=== PATIENT | female | born 1970 | race Caucasian/White ===

== ENCOUNTER 2018-12-15 19:20 | Emergency (ER) | payer BC ==
[~2018-12-15] VITALS: Ht 157.5 cm; Wt 108.0 kg
[2018-12-15 19:30] VITALS: Ht 157.5 cm; Wt 108.0 kg
[2018-12-15] MEDS ORDERED: IOHEXOL 300MG/ML 150 ML BTL ONE (22:51)
[2018-12-15] MEDS ORDERED: SOD CHLORIDE 0.9% 100 ML ONE (22:51)
[2018-12-15] MEDS ORDERED: LORAZEPAM 2 MG INJ IV ONE (23:00)
--- NOTE | 2018-12-15 23:04 | ERD ---
ER Documentation Chief Complaint Chief Complaint HEADACHE RECHECK; WAS SEEN IN HPI Very pleasant 48-year-old female who presents to the emergency room with elevated blood pressure. The patient states that she was seen in urgent care and told to come to the emergency room. For approximately 1 week the patient has been waking up with bilateral paraspinal neck and upper trapezius bilateral shoulder tenderness and discomfort. This is gotten better throughout the day but also worse after a long strenuous day at work. She notes significant social stressors. Warm compresses have certainly helped with only mild alleviation wi th nonsteroidal anti-inflammatory. Patient was noted to have elevated blood pressure and normally has regular blood pressure. Earlier in the day the patient states that for one sentence she had slurred speech and garbled speech. This lasted only one sentence was complete resolution. She has not had any recurrent episodes and no motor weakness. She denies any headache but has noted her blood pressure is higher than normal. ROS All systems reviewed and are negative except as per history of present illness. Medications Home Meds Active Scripts Aspirin* (Aspirin* EC) 81 Mg Tablet.dr, 81 MG PO DAILY for 30 Days, TAB Prov:KAILEE MIGUEL MD 12/16/18 Diazepam* (Valium*) 5 Mg Tablet, 5 MG PO Q8 PRN for MUSCLE SPASMS, #10 TAB Prov:KAILEE MIGUEL MD 12/16/18 Allergies Allergies: Coded Allergies: No Known Allergy (Unverified , 12/15/18) PMhx/Soc Medical and Surgical Hx: pt denies Surgical Hx Hx Psychiatric Problems: Yes (Anxiety, Depression) Hx Miscellaneous Medical Probl: Yes (Shingles first one 7 years ago, second one 3 years) Hx Alcohol Use: Yes (Last time Jun 2018) Hx Substance Use: Yes (Medical Marijuana last time ) Hx Tobacco Use: Yes (Last time 1 year ago) Smoking Status: Former smoker FmHx Family History: diabetes Physical Exam Vitals Vital Signs Date Temp Pulse Resp B/P (MAP) Pulse Ox O2 O2 Flow FiO2 Time Delivery Rate 12/15/18 99 20 168/71 96 Nasal 23:36 (103) Cannula 12/15/18 98 19 168/73 95 Room Air 22:00 (104) 12/15/18 94 23 164/84 96 Room Air 21:01 (110) 12/15/18 97.4 106 18 200/99 96 19:30 (132) Physical Exam General: Well developed, well nourished, no acute distress Head: Normocephalic, atraumatic. Eyes: Pupils equally reactive, EOM intact ENT: Moist mucous membranes Neck: Supple, no lymphadenopathy Respiratory: Lungs clear bilaterally, no distress Cardiovascular: RRR, no murmurs, rubs, or gallops Abdominal: Soft, non-tender, non-distended, no peritoneal signs : Deferred MSK: No edema, no unilateral swelling, 5/5 strength, very reproducible soft tissue tenderness along bilateral trapezius muscles and base of the neck Neurologic: Alert and oriented, moving all extremities, normal speech, no focal weakness, no cerebellar signs Skin: No rash Psych: Normal mood Result Diagram: 12/15/18224712/15/182247 Results 24 hrs Laboratory Tests Test 12/15/18 22:48 12/15/18 22:58 12/15/18 23:13 White Blood Count 10.9 10^3/ul Red Blood Count 5.23 10^6/ul Hemoglobin 15.0 g/dl Hematocrit 42.6 % Mean Corpuscular Volume 81.5 fl Mean Corpuscular Hemoglobin 28.7 pg Mean Corpuscular 35.2 g/dl Hemoglobin Concent Red Cell Distribution Width 13.0 % Platelet Count 309 10^3/UL Mean Platelet Volume 9.7 fl Immature Granulocytes % 0.500 % Neutrophils % 73.0 % Lymphocytes % 18.0 % Monocytes % 5.9 % Eosinophils % 2.1 % Basophils % 0.5 % Nucleated Red Blood Cells % 0.0 /100WBC Immature Granulocytes # 0.050 10^3/ul Neutrophils # 8.0 10^3/ul Lymphocytes # 2.0 10^3/ul Monocytes # 0.6 10^3/ul Eosinophils # 0.2 10^3/ul Basophils # 0.1 10^3/ul Nucleated Red Blood Cells # 0.0 10^3/ul Prothrombin Time 13.1 Sec Prothrombin Time Ratio 1.0 INR International 0.98 Normalized Ratio Activated Partial Thromboplast 27.8 Sec Time Urine Color YELLOW Urine Clarity CLEAR Urine pH 5.0 Urine Specific [place] 1.021 Urine Ketones 2+ mg/dL Urine Nitrite NEGATIVE mg/dL Urine Bilirubin NEGATIVE mg/dL Urine Urobilinogen NEGATIVE mg/dL Urine Leukocyte Esterase NEGATIVE Cris/ul Urine Microscopic RBC 1 /HPF Urine Microscopic WBC 3 /HPF Urine Bacteria FEW /HPF Urine Hemoglobin NEGATIVE mg/dL Urine Glucose 3+ mg/dL Urine Total Protein 1+ mg/dl Sodium Level 137 mmol/L Potassium Level 3.3 mmol/L Chloride Level 94 mmol/L Carbon Dioxide Level 32 mmol/L Anion Gap 11 Blood Urea Nitrogen 13 mg/dl Creatinine 0.49 mg/dl Est Glomerular Filtrat > 60 mL/min Rate mL/min Glucose Level 270 mg/dl Hemoglobin A1c 9.9 % Calcium Level 8.9 mg/dl Troponin I < 0.012 ng/ml Triglycerides Level 291 mg/dl Cholesterol Level 168 mg/dl LDL Cholesterol, Calculated 82 mg/dl HDL Cholesterol 28 mg/dl Cholesterol/HDL Ratio 6.0 RATIO POC Beta HCG, Qualitative NEGATIVE Bedside Glucose 272 mg/dL Current Medications Medications Dose Sig/Trang Start Time Status Last (Trade) Ordered Route PRN Stop Time Admin Dose Reason Admin Lorazepam 1 mg ONCE ONCE 12/15/18 DC 12/15/18 (Ativan) IV 23:00 23:17 12/15/18 23:01 Sodium 100 ml @ ud STK-MED 12/15/18 DC 12/15/18 Chloride ONCE .ROUTE 22:51 23:10 12/15/18 22:52 Iohexol 150 ml STK-MED 12/15/18 DC 12/15/18 (Omnipaque ONCE .ROUTE 22:51 23:10 300mg/ ml) 12/15/18 22:52 Ketorolac 30 mg ONCE STAT 12/16/18 DC Tromethamine IV 00:12 (Toradol) 12/16/18 00:13 Procedures/MDM EKG, MONITORS, & DIAGNOSTIC IMAGING: EKG: I reviewed and interpreted a 12-lead EKG. Rhythm: Normal sinus rhythm ST Changes: No contiguous ST segment elevations T waves: No contiguous T wave inversions Impression: No evidence of acute cardiac ischemia CTB: Verbal report from radiologist is negative for acute process CTA Head/Neck: Verbal report from radiologist is negative for acute process LAB INTERPRETATION: I reviewed the laboratory testing and it shows hyperglycemia with elevated A1c likely consistent with underlying undiagnosed diabetes MEDICAL DECISION MAKING: Patient presents to the emergency room for evaluation of elevated blood pressure and bilateral neck and shoulder pain. Her clinical exam and history is very consistent with stress anxiety and muscular skeletal etiology to her pain. Blood pressure is likely response to these situations. However the patient does describe one since episode of dysarthria. While the patient's risk profile for stroke is extremely low the patient needs further evaluation to rule out TIA. CT imaging of the head and CT of the head and neck would be most appropriate to rule out dissection or alternative hypertensive process. Again very low pretest probability for this process. ABCD Score for TIA from [facility] on 12/15/2018 All calculations should be rechecked by clinician prior to use RESULT SUMMARY: 2 points Per the validation study, 0-3 points: Low Risk 2-Day Stroke Risk: 1.0% 7-Day Stroke Risk: 1.2% 90-Day Stroke Risk: 3.1% As noted based on risk stratification the patient falls under the low risk category and outpatient workup would certainly be reasonable if no high risk criteria is noted on diagnostic workup here in the emergency room setting. Much higher suspicion for stress related etiology. ER COURSE: * The patient continues to be well-appearing, her anxiety is improved. Toradol provided with pain relief. * Diagnostic imaging shows no evidence of acute process. Given low concern for TIA or stroke with a nonfocal neurologic exam and NIHSS of 0 I believe outpatient management is appropriate. * Patient informed that she likely has diabetes. We discussed outpatient follow-up versus initiation of metformin. The patient prefers metformin. Strong family history of diabetes. CONSULTATION: None DISPOSITION PLAN: The patient does not have an identifiable emergent medical condition that warrants inpatient hospitalization at this time. The patient is deemed safe for discharge with outpatient follow-up. We discussed follow up with the patient's primary care doctor within 24 to 48 hours as needed. We also discussed return to the emergency room for worsening symptoms or worsening condition. Outpatient referral: Primary care physician follow-up recommended. Discharge Medications: Metformin 500 twice daily Valium Departure Diagnosis: Primary Impression: Hypertensive urgency Additional Impressions: Slurred speech Neck pain New onset type 2 diabetes mellitus Condition: Stable KAILEE MIGUEL MD Dec 15, 2018 23:04
[2018-12-16] MEDS ORDERED: ASPI-817 PO (00:08)
[2018-12-16] MEDS ORDERED: DIAZ5TAB PO (00:08)
[2018-12-16] MEDS ORDERED: KETOROLAC 30 MG INJ IV STA (00:12)
[2018-12-16] MEDS ORDERED: METF-849 PO (00:22)
[2018-12-16 00:24] VITALS: BP 142/68; PULSE 96; RESP 17
== END 2018-12-16 00:35 | disposition home or self-care (01) ==
LOC: E/R 19:20
DX: I16.0 Hypertensive urgency (principal); R47.81 Slurred speech; E11.9 Type 2 diabetes mellitus without complications; M54.2 Cervicalgia; Z79.82 Long term (current) use of aspirin; Z87.891 Personal history of nicotine dependence
CPT/HCPCS: 36415; 70450; 70496; 70498; 80048; 80061; 80307; 81001; 81025; 82962; 83036; 84484; 85025; 85610; 85730; 96374; 96375; 99285; J1885; J2060; Q9967; 93005